=== PATIENT | male | born 1975 | race Caucasian/White ===

== ENCOUNTER 2022-12-17 03:17 | Emergency (ER) | payer OTHER ==
[~2022-12-17] VITALS: Ht 162.6 cm; Wt 85.3 kg
--- NOTE | 2022-12-17 03:47 | NUR ---
Dr. Powell in room at bedside. MSE in progress.
[2022-12-17 04:07] LABS: HEMATOCRIT 41.8 % (36.7-47.1); MEAN CORPUSCULAR HEMOGLOBIN 28.6 uug (23.8-33.4); MEAN CORPUSCULAR VOLUME 83.8 fL (73.0-96.2); PLATELET COUNT (AUTO) 239 K/uL (152-348)
[2022-12-17 04:44] LABS: CREATININE 1.1 mg/dL (0.6-1.3); POTASSIUM 3.9 mmol/L (3.5-5.1)
[2022-12-17 04:49] LABS: BILIRUBIN,TOTAL 0.5 mg/dL (0.2-1.0); TOTAL PROTEIN, SERUM 8.1 g/dL (6.4-8.2)
[2022-12-17] MEDS ORDERED: SWABABLE VALVE TRANSFER SET EA MC ONE (05:05)
[2022-12-17] MEDS ORDERED: IOHEXOL 300MG/ML 100 ML INFUS..BTL ONE (05:05)
[2022-12-17] MEDS ORDERED: IV NORMAL SALINE 250 ML IV ONE (05:06)
[2022-12-17] MEDS ORDERED: LIDOCAINE 1%-EPI 1:100,000 20 ML VIAL ONE (05:28)
[2022-12-17] MEDS ORDERED: LIDOCAINE 1%-EPI 1:100,000 20 ML VIAL IJ ONE (05:30)
[2022-12-17] MEDS ORDERED: KETOROLAC TROMETHAMINE 15 MG INJ IVP ONE (06:00)
[2022-12-17] MEDS ORDERED: KETOROLAC TROMETHAMINE 15 MG INJ ONE (06:08)
[2022-12-17] MEDS ORDERED: CLIN300C12 PO (06:22)
[2022-12-17] MEDS ORDERED: IBUP-1957 PO (06:22)
[2022-12-17] MEDS ORDERED: PIPERACILLIN SODIUM/TAZOBACTAM 4.5 G in IV DEXTROSE 5% 50 ML IV SCH (08:15)
[2022-12-17 08:43] VITALS: O2SAT 97
--- NOTE | 2022-12-17 09:35 | NUR ---
Pt accepted at [place] -- [facility] -- ER. Accepting MD: Dr. Kapadia Report phone: [phone]. ETA for pick-up by [facility] is [phone].
--- NOTE | 2022-12-17 09:56 | NUR ---
Report called to ARIADNA Garcia ([phone]).
--- NOTE | 2022-12-17 10:30 | NUR ---
Gave report and pt's chart to duck farmer. Pt transported.
== END 2022-12-17 10:49 | disposition short-term general hospital (02) ==
LOC: ER 03:25
DX: K61.0 Anal abscess (principal); Z79.1 Long term (current) use of non-steroidal anti-inflammatories (NSAID); Z79.2 Long term (current) use of antibiotics
CPT/HCPCS: 99285; 74177; 96365; 96375; 76882; 80053; 85025; 36415; J1885; J3490; Q9967; J2543; A4663